=== PATIENT | male | born 1980 | race Caucasian/White ===

== ENCOUNTER → 2018-09-29 | Day surgery (SDC) | payer BC ==
[~2018-09-29] MED LIST: FENTANYL CITRATE/PF 100MCG/2 ML INJ ONE; KETAMINE HCL INJ 50 MG/ML 10 ML VIAL ONE; MIDAZOLAM HCL 2 MG/2 ML VIAL ONE; PROPOFOL IV EMULSION 10 MG/ML 50 ML VIAL ONE
--- OUTSIDE RECORDS SUMMARY | 2018-09-29 06:51 | XMS REPORT | Summary of Care ---
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 Name Role Phone SATPEDRO Sarmiento, YOBANI Unavailable Unavailable ANNA HOLT [place], LYNNE PATTON Unavailable Unavailable DARCY BEAVERS [place], ROSELINE Unavailable Unavailable VASILIY PAUL, LUIS Unavailable Unavailable Unavailable Unavailable Functional Status Name Dates Details Functional status health issues are not documented Status: Name Dates Details Cognitive status health issues are not documented Status: Problems Name Dates Details Low back pain (724.2, M54.5) Status: Active Colon polyp (211.3, K63.5) Status: Active Back pain, lumbosacral (724.2, M54.5) Status: Active Obesity, morbid, BMI 40.0-49.9 (278.01, E66.01) Status: Active Medications Name Dates Details None - No Current Medications Active Lodine 300 MG CAPS * Refills: 0 Active methylPREDNISolone 4 MG Oral Tablet Therapy Pack take as directed on packaging * Quantity: 1 Refills: 0 SATTAR M.D., YOBANI * Start : 16-Aug-2018 Active 21 Tablet Pack Baclofen 10 MG Oral Tablet TAKE 1/2 TO 1 TABLET BY MOUTH TWICE DAILY NEEDED FOR MUSCLE SPAMS * Quantity: 14 Refills: 0 SATTAR M.D., YOBANI * Start : 16-Aug-2018 Active Allergies and Adverse Reactions Name Dates Details No Known Allergies (Allergy) Status: Active Past Medical History Name Dates Details History of No significant past medical history Status: Resolved History of pharyngitis (V12.69, Z87.09) Status: Resolved History of Upper respiratory infection, acute (465.9, J06.9) Status: Resolved Procedures Procedure Dates Details History of No history of surgery Completed Immunization Name Dates Details Influenza on: 01-Apr-2011 Family History Name Dates Details Family history of Hypertension (V17.49) Comments: Family History Status: Active Family history of Diabetes Mellitus (V18.0) Comments: Family History Status: Active Family history of Cancer Comments: Family History Status: Active Social History Name Dates Details - Status: Name Dates Details Current every day smoker Vital Signs Date Test Result Details [id number] BP Systolic 121 mm[Hg] Status: Comments: Location: E; Position: Sitting BP Diastolic 86 mm[Hg] Status: Comments: Location: LUE; Position: Sitting Height 75 in Status: Weight 364 lb Status: Body Mass Index Calculated 45.5 kg/m2 Status: Body Surface Area Calculated 2.83 m2 Status: Temperature 97 f Status: Comments: Method: Temporal Respiration Rate 16 /min Status: Heart Rate 62 /min Status: [id number] BP Systolic 126 mm[Hg] Status: Comments: Location: LUE; Position: Sitting BP Diastolic 77 mm[Hg] Status: Comments: Location: LUE; Position: Sitting Height 75 in Status: Weight 362.3125 lb Status: Body Mass Index Calculated 45.29 kg/m2 Status: Body Surface Area Calculated 2.82 m2 Status: Temperature 97.7 f Status: Comments: Method: Temporal Respiration Rate 16 /min Status: Results Date Description Value Details [id number] XRAY Spine lumbar series 05100 Spine lumbar series SEE NOTES Comments: EXAM: XR LUMBAR SPINE 5 VIEWSDATE: 07/19/2018 11:43 CDTINDICATION: - low back painCOMPARISON: None available.TECHNIQUE: AP, lateral, coned lateral, LPO and RPO radiographs of the lumbarspineDISCUSSION: 5 nonrib bearing, lumbar-type vertebral bodies are present withrudimentary ribs at T12.There is mild levocurvature of the lumbar spine.Vertebral body heights are preserved.Moderate asymmetric right-sided disc height loss at L2-L3. Endplate sclerosisand small osteophytes are present.There is no spondylolysis or spondylolisthesis.Multilevel mild to moderate facet arthrosis.No soft tissue abnormality is identified.IMPRESSION:1. Moderate degenerative disc disease at L2-L3.2. Mild to moderate multilevel facet arthrosis.3. No spondylolysis or spondylolisthesis.--Read by: Miranda Mays MDDictated Date/time: 07/19/18 12:54Electronically Signed by: Miranda Mays MD 07/20/1911:57FINAL REPORT Plan of Care Name Dates Details Planned Observations Planned Goals not documented Interventions Provided Medication Changes* Baclofen 10 MG Oral Tablet - Start * methylPREDNISolone 4 MG Oral Tablet Therapy Pack - Start Follow-ups/Referrals* Physical Therapy Referral; To Be Done: 16 Aug 2018 Plan* Activity as tolerated * Can apply local heat or cool packs 3-5 min on and off to affected area 3-4 times a day or as needed * Can use Tylenol 1-2 tabs per day as needed * Refer for physical therapy * Return to clinic in 6 weeks, sooner if needed * Please seek early care if not getting better or getting worse or new change in condition. * Please call us back if you don't hear from the office about your labs, imaging or referral in a week. Instructions Name Dates Details Instructions not documented Encounters Appointment; LUIS AMANDA P.A. Encounter Diagnosis: Problem not documented On: 10-May-2018 13:00 Appointment; LUIS AMANDA P.A. Encounter Diagnosis: Problem not documented On: 19-Jul-2018 10:15 Appointment; YOBANI HANSEN M.D. Encounter Diagnosis: Problem not documented On: 16-Aug-2018 10:30
[2018-09-29 09:40] VITALS: BP 118/72
--- NOTE | 2018-09-29 10:20 | Operative Report ---
DATE OF PROCEDURE: 09/29/2018 SURGEON: Paulo Duron MD PROCEDURE PERFORMED: Colonoscopy. PREOPERATIVE DIAGNOSIS: History of colon polyps. POSTOPERATIVE DIAGNOSIS: Polyp in the sigmoid colon, removed with hot biopsy forceps. PREOPERATIVE MEDICATIONS: Consisted of MAC anesthesia. PROCEDURE IN DETAIL: Using an Olympus HackerHAND video colonoscope, it was inserted in the patient's rectum and advanced without difficulty to the level of cecum. The colon was studied from that level back down to the rectum. In the sigmoid colon, a 5 mm size benign polyp was found and removed with the hot biopsy forceps. The colonoscope was withdrawn from the patient's rectum and the procedure was ended. At conclusion, we have finding of a benign polyp in the sigmoid colon, which was removed with the hot biopsy forceps. Paulo Duron MD SAF/MODL /[id number]
== END | disposition home or self-care (01) ==
LOC: OR 06:49
PROVIDERS: ATTEND Internal Medicine Gastroenterology
DX: Z09 Encounter for follow-up examination after completed treatment for conditions other than malignant neoplasm (principal); K63.5 Polyp of colon; K64.0 First degree hemorrhoids; Z68.42 Body mass index [BMI] 45.0-49.9, adult; Z87.891 Personal history of nicotine dependence; Z80.0 Family history of malignant neoplasm of digestive organs
CPT/HCPCS: 45384; J2250; J2704; 45378; J3010